=== PATIENT | female | born 1970 | race Caucasian/White ===

== ENCOUNTER 2020-03-23 10:36 | Outpatient (CLI) | payer BC, SELFPAY ==
--- NOTE | ~2020-03-23 | XR_ITS ---
XR foot LT min 3V DATE: 03/23/2020 11:11 INDICATION: Joint stiffness, neuropathy, diabetes TECHNIQUE: 4 views COMPARISON: None FINDINGS: No fracture or dislocation, periosteal reaction or bone destruction is detected. Joint spac es are relatively preserved. No erosive change is detected. No arterial calcifications are noted. IMPRESSION: No significant abnormality Reviewed, dictated and finalized at location B. OR CORE JAVA DEVELOPER IMPRESSION: No significant abnormality
--- NOTE | ~2020-03-23 | XR_ITS ---
XR knee LT 3V 03/23/2020 11:11 INDICATION: Left knee pain and stiffness. Diabetes. PROCEDURE: 3 views left knee COMPARISON: No prior studies for comparison. FINDINGS: Fracture, dislocation or subluxation is not identified. No significant joint effusion. The soft tissues appear within normal limits. No foreign bodies are identified. IMPRESSION: 1: NO ACUTE BONE OR JOINT ABNORMALITY IDENTIFIED. Reviewed, dictated and finalized at location A. BOUND TEACHER
--- NOTE | ~2020-03-23 | XR_ITS ---
XR knee RT 3V 03/23/2020 11:12 Indication: Right knee pain and stiffness. Diabetes. Procedure: 3 views right knee Comparison: No prior studies for comparison. Findings: No fracture or traumatic malalignment. No significant joint space narrowing. No joint effus ion. No focal soft tissue abnormality. No foreign bodies. Impression: 1: No significant bone or joint abnormality. Reviewed, dictated and finalized at location A. ENT SERVICES REP Impression: 1: No significant bone or joint abnormality.
--- NOTE | ~2020-03-23 | XR_ITS ---
XR foot RT min 3V DATE: 03/23/2020 11:11 INDICATION: Joint stiffness, neuropathy, diabetes TECHNIQUE: 4 views COMPARISON: None FINDINGS: No fracture or dislocation, periosteal reaction or bone destruction. Joint spaces are prese rved. No erosive changes. IMPRESSION: Negative Reviewed, dictated and finalized at location B. IAL EDUCATION INSTRUCTOR IMPRESSION: Negative
== END 2020-03-23 10:37 | disposition home or self-care (01) ==
PROVIDERS: PCP Family Medicine
DX: M25.60 Stiffness of unspecified joint, not elsewhere classified (principal); Z86.39 Personal history of other endocrine, nutritional and metabolic disease; E10.40 Type 1 diabetes mellitus with diabetic neuropathy, unspecified; G62.9 Polyneuropathy, unspecified
CPT/HCPCS: 73562; 73630